=== PATIENT | male | born 1985 | race American Indian/Alaskan Native ===

== ENCOUNTER 2018-10-15 16:15 | Emergency (ER) | payer MEDICAID ==
[2018-10-15 16:30] VITALS: BP 151/90
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
--- NOTE | 2018-10-15 20:16 | XRay Report ---
PROCEDURE: XR SPINE LUMBOSACRAL 2-3V TECHNIQUE: Lumbar spine radiograph, 3 views HISTORY: low back pain COMPARISONS: None FINDINGS: There is straightening of the usual lumbar lordosis. No scoliosis. Disc spaces are preserved. Vertebr al body heights and alignment are maintained. IMPRESSION: No acute osseous abnormality is identified. This document is electronically signed by Shabana Thomas MD., October 15 2018 08:14:29 PM ET
--- NOTE | 2018-10-15 20:17 | XRay Report ---
PROCEDURE: XR HIP 2-3V RT TECHNIQUE: Right hip and AP view of the pelvis HISTORY: hip pain COMPARISONS: None FINDINGS: No acute fracture or joint dislocation is seen. No focal osseous lesions. No osteoarthritic changes a re seen. IMPRESSION: Unremarkable exam. This document is electronically signed by Shabana Thomas MD., October 15 2018 08:15:30 PM ET
== END 2018-10-15 20:10 | disposition left against medical advice (07) ==
LOC: ED 16:15
DX: M54.9 Dorsalgia, unspecified (principal); Z53.21 Procedure and treatment not carried out due to patient leaving prior to being seen by health care provider
CPT/HCPCS: 72100

== ENCOUNTER 2022-02-07 13:10 | Emergency (ER) | payer SELFPAY ==
--- NOTE | 2022-02-07 14:20 | Ultrasound Report ---
Scrotal Ultrasound HISTORY: pain and bleeding. TECHNIQUE: Grayscale and color/spectral Doppler imaging performed. COMPARISON: None FINDINGS: The right testicle measures 4.8 x 2.6 x 3.4 cm. The left testicle measures 4.9 x 2.6 x 3.3 cm. No evidence for testicular mass, cyst or calcifications. Both testicles are slightly heterogeneou s echotexture. Spectral Doppler waveforms demonstrate arterial flow bilaterally. The epididymides are unremarkable. Small right varicocele and small simple appearing hydroceles are identified. IMPRESSION: No evidence for mass, acute inflammation or torsion. Small right varicocele and small anny ateral hydroceles. Signer Name: Dejon Gates Jr, MD Signed: 02/07/2022 2:16 PM Workstation Name: [id number]
[2022-02-07] MEDS ORDERED: LIDOCAINE-MPF (1%) 10 MG/1 ML VIAL 5 ML INFILTRATI ONE (15:29)
[2022-02-07] MEDS ORDERED: PHENAZOPYRIDINE 200 MG TAB PO ONE (15:30)
[2022-02-07 16:20] LABS: Hematocrit 47.3 % (35.5-45.6); Hemoglobin 15.5 gm/dl (11.8-15.2); Mean Corpuscular HGB Conc 33 % (32-34); Mean Corpuscular Volume 85 fl (84-94); Platelet Count 207 K/mm3 (140-440); Red Blood Count 5.56 M/mm3 (3.65-5.03); Red Cell Distribution Width 14.7 % (13.2-15.2)
[2022-02-07 16:42] LABS: Alanine Aminotransferase 15 units/L (7-56); Albumin 4.7 g/dL (3.9-5); BUN/Creatinine Ratio 14; Blood Urea Nitrogen 11 mg/dL (9-20); Calcium 10.2 mg/dL (8.4-10.2); Hemolysis Index 5
[2022-02-07 18:08] LABS: Bilirubin,Urine NEG (Negative); Blood,Urine LG (Negative); Color,Urine Yellow (Yellow); Protein,Urine <15 mg/dL mg/dL (Negative); Urobilinogen,Urine < 2.0 mg/dL (<2.0)
[2022-02-07 18:13] LABS: Mucus,Urine 2+ /HPF; RBC,Urine > 182.0 /HPF (0.0-6.0)
--- NOTE | 2022-02-07 18:15 | Emergency Department Report ---
ED Male HPI - General Chief complaint: Urogenital-Male Stated complaint: BLEEDING FROM PENIS Source: patient Mode of arrival: Ambulatory Limitations: No Limitations - History of Present Illness MD Complaint: penile discharge, dysuria, other (Gross hematuria) -: Sudden, hour(s) (12) Location: penis Radiation: none Severity: severe Severity scale (0 -10): 7 Quality: aching, burning, dull Consistency: constant Improves with: none Worsens with: urination, sexual intercourse new sexual partner denies other symptoms, discharge, blood in urine, dysuria, other (Gross hematuria). denies: swelling, mass, rash, urinary retention, fever, nausea/vomiting, incontinence - Related Data Sexually active: Yes (With multiple sexual partners and unprotected sexual intercourse) Previous Rx's Medication Instructions Recorded Last Taken Type Doxycycline Hyclate 100 mg PO Q12H #20 cap 02/07/22 Unknown Rx Ibuprofen [Motrin] 600 mg PO Q8H PRN #21 tablet 02/07/22 Unknown Rx Phenazopyridine [Pyridium] 200 mg PO BID #20 tab 02/07/22 Unknown Rx Allergies Allergy/AdvReac Type Severity Reaction Status Date / Time No Known Allergies Allergy Verified 02/07/22 13:19 ED Review of Systems ROS: Stated complaint: BLEEDING FROM PENIS Other details as noted in HPI Constitutional: denies: chills, fever Eyes: denies: eye pain, eye discharge, vision change ENT: denies: ear pain, throat pain Respiratory: denies: cough, shortness of breath, wheezing Cardiovascular: denies: chest pain, palpitations Endocrine: no symptoms reported Gastrointestinal: denies: abdominal pain, nausea, vomiting, diarrhea Genitourinary: urgency, dysuria, frequency, hematuria, discharge, other (Penile pain with gross hematuria) Musculoskeletal: denies: back pain, joint swelling, arthralgia Skin: denies: rash, lesions Neurological: denies: headache, weakness, paresthesias Psychiatric: denies: anxiety, depression Hematological/Lymphatic: denies: easy bleeding, easy bruising ED Past Medical Hx - Surgical History Additional Surgical History: hernia repair - Social History Smoking Status: Current Every Day Smoker Substance Use Type: None - Medications Home Medications: Home Medications Medication Instructions Recorded Confirmed Last Taken Type Doxycycline Hyclate 100 mg PO Q12H #20 cap 02/07/22 Unknown Rx Ibuprofen [Motrin] 600 mg PO Q8H PRN #21 tablet 02/07/22 Unknown Rx Phenazopyridine [Pyridium] 200 mg PO BID #20 tab 02/07/22 Unknown Rx ED Physical Exam - General Limitations: No Limitations General appearance: alert, in no apparent distress - Head Head exam: Present: atraumatic, normocephalic, normal inspection - Eye Eye exam: Present: normal appearance, PERRL, EOMI Pupils: Present: normal accommodation - ENT ENT exam: Present: normal exam, normal orophraynx, mucous membranes moist, TM's normal bilaterally, normal external ear exam - Neck Neck exam: Present: normal inspection, full ROM - Respiratory Respiratory exam: Present: normal lung sounds bilaterally. Absent: respiratory distress, wheezes, rales, stridor, chest wall tenderness, accessory muscle use, decreased breath sounds, prolonged expiratory - Cardiovascular Cardiovascular Exam: Present: regular rate, normal rhythm, normal heart sounds. Absent: systolic murmur, diastolic murmur, rubs, gallop - GI/Abdominal GI/Abdominal exam: Present: soft, normal bowel sounds. Absent: tenderness, hyperactive bowel sounds, hypoactive bowel sounds, organomegaly, bruit, pulsatile mass - Rectal Rectal exam: Present: deferred - exam: Present: normal inspection. Absent: testicular tenderness External exam: Present: normal external exam. Absent: erythema - Extremities Exam Extremities exam: Present: normal inspection, full ROM, normal capillary refill. Absent: tenderness - Back Exam Back exam: Present: normal inspection, full ROM. Absent: tenderness, CVA tenderness (R), CVA tenderness (L), muscle spasm, paraspinal tenderness, vertebral tenderness - Neurological Exam Neurological exam: Present: alert, oriented X3, CN II-XII intact, normal gait, reflexes normal - Psychiatric Psychiatric exam: Present: normal affect, normal mood - Skin Skin exam: Present: warm, dry, intact, normal color. Absent: rash ED Course Vital Signs 02/07/22 13:16 Temperature 97 F L Pulse Rate 88 Respiratory 18 Rate Blood Pressure 166/89 [Left] O2 Sat by Pulse 99 Oximetry ED Medical Decision Making - Lab Data Result diagrams: 02/07/22 15:46 02/07/22 15:46 - Differential Diagnosis STD; trichomonas; gonorrhea; chlamydia; kidney stone; Critical care attestation.: If time is entered above; I have spent that time in minutes in the direct care of this critically ill patient, excluding procedure time. ED Disposition Clinical Impression: Hematuria due to cystitis, Sexually transmitted disease (STD), Urethritis, nonspecific, Acute urinary tract infection Disposition: 01 HOME / SELF CARE / HOMELESS Is pt being admited?: No Does the pt Need Aspirin: No Condition: Stable Instructions: Urethritis, Adult, Urinary Tract Infection, Adult, [id number], Preventing Sexually Transmitted Infections, Adult, Gonorrhea, Chlamydia, Male Additional Instructions: All lab test results were reviewed and are all nonactionable except for urinalysis that show significant infection consistent with sexually transmitted disease, commonly chlamydia and gonorrhea. You have been treated for gonorrhea in the ER today but he shall be discharged home on antibiotics for chlamydia. Therefore follow-up with the [facility] for further STD testing including syphilis and HIV. Ensure that all your sexual partners are treated for the same at the health department. Return to the ED immediately if symptoms get worse. Prescriptions: Doxycycline Hyclate 100 mg PO Q12H #20 cap Ibuprofen [Motrin] 600 mg PO Q8H PRN #21 tablet PRN Reason: Pain Phenazopyridine [Pyridium] 200 mg PO BID #20 tab Referrals: [facility] [Outside] - 7-10 days Forms: STI Treatment and Prevention Time of Disposition: 18:37 Print Language: BRUNEIAN
[2022-02-07 18:33] LABS: Basophils % (Manual) 0 % (0.0-1.8); Hypochromasia 1+; Large Platelets Few; Platelet Estimate Consistent w Auto; Total Cells Counted 100
[2022-02-07 19:07] VITALS: BP 156/82
== END 2022-02-07 19:08 | disposition home or self-care (01) ==
LOC: ED 13:10
DX: N30.91 Cystitis, unspecified with hematuria (principal); A64 Unspecified sexually transmitted disease; F17.200 Nicotine dependence, unspecified, uncomplicated; Z79.899 Other long term (current) drug therapy
CPT/HCPCS: 36415; 80053; 81001; 85007; 85025; 87086; 93975; 96372; 99284; J0696; J3490